=== PATIENT | male | born 1995 | race Caucasian/White ===

== ENCOUNTER 2016-04-18 02:53 | Emergency (ER) | payer OTHER ==
[~2016-04-18] VITALS: Ht 180.3 cm; Wt 73.9 kg
[~2016-04-18 02:53] MED LIST: DXY100 PO
[2016-04-18 02:55] VITALS: TEMP 36.4; O2SAT 98; Ht 180.3 cm; Wt 73.9 kg
[2016-04-18 03:41] LABS: BUN/CREATININE RATIO 8.5 (10-20); POTASSIUM 3.8 mmol/L (3.5-5.1)
[2016-04-18 09:51] VITALS: BP 101/47; PULSE 78; O2SAT 99
--- NOTE | 2016-04-18 21:33 | EMERGENCY ROOM VISIT NOTE ---
History First contact with patient: 02:58 Chief Complaint: ALCOHOL OVERDOSE Stated Complaint: ALCOHOL OVERDOSE Nursing Triage Summary: Pt arrived via [facility] in handcuffs with [place] police escort. Per EMS, pt found downtown by police after breaking and entering stranger's home. Pt reported uncooperative with police and EMS. Pt handcuffed and brought to hospital in ambulance. Pt reports he drank "less than 10 drinks". Breathalized by police and reading 0.25. Pt has bandage on left great toe which was reportedly "taken care of" a week ago for an ingrown toe nail. Pt also has left hand abrasion and left elbow scab from previous injury. History of Present Illness The patient is a 21 year old male who presents to the Emergency Room with complaints of alcohol intoxication via police and EMS. Patient was sleeping in someone else's house and broke in to there home. He then ran from the [employer]. He states he had a lot of alcohol. No drug use. Patient had a ingrown toenail removal done yesterday to his left great toe. He is currently on antibiotics. Patient denies drug use, chest pain, dyspnea, abdominal pain or any other medical complaints. Review of Systems See HPI for pertinent positives & negatives. A total of 10 systems reviewed and were otherwise negative. Past Medical/Surgical History Medical Problems: (1) No Known Active Medical Problems Social History Smoking Status: Current Every Day Smoker Alcohol Use: occasionally Housing Status: lives with family Occupation Status: [email or web address] student Current/Historical Medications No Active Prescriptions or Reported Meds Allergies Coded Allergies: No Known Allergies (Unverified , 04/10/14) Physical Exam Vital Signs Date Time Temp Pulse Resp B/P Pulse Ox O2 Delivery O2 Flow Rate FiO2 04/18/16 09:51 78 18 101/47 99 04/18/16 09:04 86 16 101/57 95 Room Air 04/18/16 08:02 89 16 123/58 95 Room Air 04/18/16 07:55 98 04/18/16 06:28 119/63 04/18/16 06:13 95 17 94 04/18/16 06:08 97 17 94 04/18/16 05:58 106/58 04/18/16 05:38 99 19 94 04/18/16 05:33 100 19 95 04/18/16 05:28 100/58 04/18/16 05:03 98 18 93 04/18/16 04:58 120/61 04/18/16 04:38 105 22 92 04/18/16 04:28 115/65 04/18/16 04:08 103 20 93 04/18/16 04:03 107 22 93 04/18/16 03:58 113/64 04/18/16 03:33 92 20 91 04/18/16 03:28 112/70 04/18/16 03:26 109/73 04/18/16 03:23 94 19 93 04/18/16 03:04 131 04/18/16 03:00 160/113 04/18/16 02:55 36.4 123 19 160/113 98 Room Air 04/18/16 02:55 98 Room Air Physical Exam PHYSICAL EXAM: VITALS: Vitals are noted on the nurse's note and reviewed by myself. Vital signs stable. GENERAL: White male with the twitch in her, in no acute distress, nondiaphoretic , well-developed well-nourished. The patient is visibly intoxicated. SKIN: The skin was without obvious lacerations, abrasions, or rashes. There is no tenting of the skin. Capillary reflex less than 2 seconds. HEENT: Normocephalic, atraumatic. PERRLA. EOMI. Conjunctiva with mild injection without icterus. Tympanic membranes without erythema or effusion bilaterally no hemotympanum. External auditory canals are clear. Nares patent bilaterally. No epistaxis. Oropharynx without erythema or exudate. Uvula midline. Oral mucosal moist. No lymphadenopathy. Neck is supple without cervical spine tenderness. HEART: Regular rate and rhythm without murmurs gallops or rubs. Peripheral pulses 2+. LUNGS: Clear to auscultation bilaterally without wheezes, rales or rhonchi. ABDOMEN: Positive bowel sounds x 4. Normal tympanic percussion. Soft, nontender, without masses or organomegaly. MUSCULOSKELETAL: Gross motor function of the upper and lower extremities intact. The patient has a staggering gait. Left great toe with partial toenail removal from finger until without active signs of infection or drainage. NEUROLOGIC: The patient is visibly intoxicated. Once they were more sober they were alert and oriented to person place and time. Medical Decision & Procedures Laboratory Results 04/18/16 03:05 Test 04/18/16 03:05 Anion Gap 13.0 mmol/L (3-11) Est Creatinine Clear Calc Drug Dose 123.2 ml/min Estimated GFR () 125.0 Estimated GFR (Non- 107.9 BUN/Creatinine Ratio 8.5 (10-20) Calcium Level 9.0 mg/dl (8.5-10.1) Ethyl Alcohol mg/dL 278.0 mg/dl (0-3) ED Course Prior records/ancillary studies reviewed. Triage Nursing notes reviewed. Additional history obtained from EMS and police The patient's history was concerning for altered mental status and a possible alcohol overdose. Differential diagnosis: Etiologies such as alcohol intoxication, toxicologic, infection, hypoglycemia, electrolyte abnormalities, cardiac sources, intracerebral event, neurologic, as well as others were entertained. Physical examination: As above. The patient is clinically intoxicated. no trauma noted. ER treatment provided: Monitoring Aspiration precautions The patient was frequently reassessed. Diagnostic interpretation by me: Cardiac monitoring did not reveal any evidence of dysrhythmia. The labs reviewed. The patient's blood alcohol level was 274 mg/dL. The patient's history was reviewed once they were more coherent and their intoxication cleared. The patient states they have been in good health recently and had no medical complaints. The patient admitted to consuming alcohol. No additional concerning findings were noted. The patient complained of no symptoms to suggest assault. This appears to be consistent with an isolated overdose of alcohol. By the evaluation outlined above emergent etiologies such as trauma, infection, hypoglycemia, electrolyte abnormalities, cardiac sources, intracerebral event, neurologic,as well as others were deemed relatively unlikely. The patient was informed about the findings as listed above. The patient was counseled on the dangers of excessive alcohol use. I gave my usual and customary discussion regarding this issue. All questions were answered and the patient was pleased with the treatment. Return instructions were outlined and the patient was discharged in stable condition once their mental status improved and a safe destination was confirmed. Outpatient prescription management: None Referral: The patient was referred back to their primary care physician for follow-up in 2 to 3 days for a recheck of their current condition. Medical Decision As above Impression Primary Impression: Alcoholic intoxication Departure Information Dispostion Home / Self-Care Condition GOOD Prescriptions No Active Prescriptions or Reported Meds Referrals No Doctor, Assigned (PCP) Patient Instructions My [facility] Additional Instructions Keep well-hydrated. Tylenol every 6 hours as needed for pain (Maximum 3000 mg Tylenol in 24 hr period). Follow up with family doctor and/or health services as needed. No driving for the next 24 hours. Recommend no alcohol for the next 48 hours and avoid binge drinking in the future. Return to ER sooner for chest pain, abdominal pain, worsening signs or symptoms or as needed. Problem Qualifiers Primary Impression: Alcoholic intoxication Complication of substance-induced condition: uncomplicated Qualified Codes: F10.120 - Alcohol abuse with intoxication, uncomplicated
== END 2016-04-18 09:52 | disposition home or self-care (01) ==
LOC: EDBD 02:53 → C.EDB 02:54
DX: F10.120 Alcohol abuse with intoxication, uncomplicated (principal); F17.210 Nicotine dependence, cigarettes, uncomplicated